=== PATIENT | female | born 1960 | race Caucasian/White ===

== ENCOUNTER 2023-04-23 14:27 | Emergency (ER) | payer OTHER, SELFPAY ==
--- NOTE | ~2023-04-23 | CT_ITS ---
EXAMINATION: CT gi bleed abd pel wo/w IVcon CLINICAL INFORMATION: bloody diarrhea, severe abd pain COMPARISON: None. TECHNIQUE: Following noncontrast images, multidetector volumetric imaging was performed from the superior aspect of the liver through the pubic symphysis following administration of 80 mL Omnipaque 300 intravenous contrast. Early and delayed phase imaging obtained. Sagittal and coronal reformatted images were obtained on the technologist workstation.. This CT examination was performed using dose optimization techniques as appropriate, variously including the following: *Automated exposure control *Adjustment of mA and/or kV according to patient size (this includes techniques or standardized protocols for targeted exams where dose is matched to indication/reason for exam; i.e. extremities or head) *Use of iterative reconstruction technique DLP: 985 mGy-cm FINDINGS: LUNG BASES: The visualized lung bases are unremarkable. LIVER, GALLBLADDER, AND BILIARY TREE: The liver is normal in size, shape, and attenuation. Low-attenuation subcentimeter probable cyst in the lateral segment 2 of the liver. No suspicious focal hepatic lesion or biliary ductal dilatation is present. The gallbladder is unremarkable with no evidence of radiopaque gallstones, gallbladder wall thickening, or obvious pericholecystic inflammatory changes. PANCREAS: Unremarkable. SPLEEN: Unremarkable. ADRENAL GLANDS: Unremarkable. KIDNEYS AND URETERS: The kidneys are normal in size, shape, and attenuation. Tiny cortical low-attenuation cysts in the right greater left kidneys. No hydronephrosis, hydroureter, or calculi seen. No perinephric stranding. BLADDER: Unremarkable. GASTROINTESTINAL TRACT: There is diffuse colonic wall thickening extending from the splenic flexure to the proximal sigmoid colon. This relatively long segment of colonic wall thickening and pericolonic inflammatory change is more suggestive of underlying infectious or inflammatory etiologies. I do not appreciate any active contrast extravasation on the early contrast phase or puddling of contrast on the delayed postcontrast images. No obstructive changes to the more proximal bowel ABDOMINAL WALL: No significant hernia is appreciated. LYMPHOVASCULAR STRUCTURES: Vascular calcification within the aorta iliac system. PELVIC VISCERA: Unremarkable. 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 This is a relatively long segment of colonic wall thickening and pericolonic inflammatory change. Infectious or inflammatory etiologies would be favored. I do not appreciate any evidence for active GI bleed
--- NOTE | 2023-04-23 14:31 | ED_ITS ---
[facility] - General Adult General Chief complaint: Abdominal Pain Stated complaint: Rectal Bleed Time Seen by Provider: 04/23/23 17:57 Source: patient and family Mode of arrival: ambulatory History of Present Illness HPI narrative: 62-year-old female who presents with history of hypertension and regular alcohol use but denies any increase an NSAID use but states she uses a daily aspirin. Patient states that early in the morning she awoke with significant abdominal discomfort and does not think it is related with any contaminated food and this was associated with significant nausea and she states that she was able to have a bowel movement and that the discomfort improved afterwards but she noted that there was diarrhea mixed with blood. She stated that the blood was stone a toilet paper on wiping, she had another episode, followed up with her PCP who did perform a rectal exam and informed the patient that the stool was dark but that if she had another episode of bleeding with defecation that she should seek further evaluation in the emergency room. She did have another episode and is now presenting for further workup. She states that the abdominal discomfort is constant in that there are no alleviating or exacerbating symptoms. She states that she is no longer passing flatus but has attempted to eat yogurt and has had coffee today as well. She denies any use blood thinners. Related Data Previous Rx's Medication Instructions Recorded omeprazole 40 mg capsule,delayed 40 mg PO DAILY #30 caps 04/23/23 release Allergies Allergy/AdvReac Type Severity Reaction Status Date / Time No Known Allergies Allergy Verified 04/23/23 14:35 Review of Systems Review of Systems: Pertinent positives and negatives as stated in [facility] Past Medical History Source: nursing notes reviewed Social History Social History Alcohol intake: current Alcohol intake frequency: a few times a week Smoked in Last 30 Days: No Use of substances other than those prescribed or required for medical reasons: No Advance Directives: No Advance Directives Information Provided: Yes Patient : No Physical Exam ED Vital Signs: Vital Signs - 24 hr 04/23/23 14:32 04/23/23 18:02 04/23/23 18:14 Temperature 98 F Pulse Rate 75 91 Respiratory Rate 19 18 Blood Pressure 216/97 H 195/107 H 179/86 H Pulse Oximetry 98 98 Oxygen Delivery Method Room Air 04/23/23 19:50 04/23/23 20:00 Temperature 98.5 F 98.0 F Pulse Rate 78 60 Respiratory Rate 16 16 Blood Pressure 175/89 H 115/63 Pulse Oximetry 97 98 Oxygen Delivery Method Room Air BMI result Body Mass Index 23.3 VITAL SIGNS: Reviewed. GENERAL: Well developed, well nourished, in no acute distress. HEAD: Normocephalic/atraumatic EYES: PERRLA, EOMI, no pale conjunctiva EARS: Ext canals without abnormality NOSE: Nares patent bilateral OROPHARYNX: no oral lesions noted, posterior pharynx clear NECK: Supple, no adenopathy LUNGS: Normal breath sounds. No adventitious sounds or accessory muscle use. SpO2<98> CARDIOVASCULAR: Regular rate and rhythm without noted murmurs ABDOMEN: Soft, mid/upper abdominal discomfort on palpation, non-distended with bowel sounds. BRYCE: Not inflamed external hemorrhoids, soft stool within the rectal vault with brick colored blood, good rectal tone MUSCULOSKELETAL: No tenderness, deformities, or effusions noted on gross inspection. EXTREMITIES: No cyanosis, clubbing or edema. SKIN: Inspection of the skin reveals no rashes or pallor NEUROLOGIC: Alert and oriented x 4. Strength and sensation to light touch were grossly intact x 4. Course Course Course Narrative: This is an RME: Additional HPI, ROS, PE not included below will be deferred to primary provider. Patient is a 62-year-old female with history of COPD, breast cancer in remission, alcohol use but recently cut back presenting to the emergency department with abdominal pain, 2 episodes of diarrhea with bright red blood. This morning noted a blood tinge with BM and blood on toilet paper after wiping. Saw PA at [place] today, did a rectal exam, he stated that he did not see blood but stool was dark, advised her to go to ED if another episode occurred. Reports went home and had another BM with blood noted. Continues to have diffuse abdominal pain. BP high but patient did not take BP meds today. Plan: labs Medications Administered Discontinued Medications Generic Name Dose Route Start Last Admin Trade Name Freq PRN Reason Stop Dose Admin Sodium Chloride 1,000 mls @ 999 mls/hr 04/23/23 18:15 04/23/23 19:50 Ns IV 04/23/23 19:15 Infused .Q1H1M AMANDA Infusion Iohexol 100 ml 04/23/23 19:12 04/23/23 19:12 Iohexol 350 Mg/Ml 100 Ml Infus..Btl IV 04/23/23 19:13 85 ml ONCE ONE Administration Pantoprazole Sodium 80 mg 04/23/23 18:15 04/23/23 18:31 Pantoprazole Sodium 40 Mg/10 Ml Vial IVPUSH 04/23/23 18:16 80 mg ONCE ONE Administration Medical Decision Making Medical Decision Making [facility] Narrative: 1815: 62-year-old female with history and clinical presentation suggestive of upper GI bleed and possibly related with chronic alcohol consumption, source and history does appear to be consistent with hemorrhoidal in nature and lower clinical suspicion for diverticular. There is the possibility of ischemic, otherwise patient is hemodynamically stable, hemoglobin is stable but will repeat, will start IV/administer IV fluids/Protonix and proceed with CT scan with IV contrast using GI bleed protocol. 2120: I reviewed all investigations, to include serial hemoglobin/hematocrit evaluations which remains stable, patient is not tachycardic, pain has resolved, blood pressure remains stable and on review CT scan there is evidence splenic flexure thickening that extends distal, all results and findings were discussed with patient at bedside and reassured patient that I do think she is a safe discharged home with strict return precautions that if she develops any significant amount of bleeding episodes that she should immediately return. Patient reports that she has a Gastroenterology appointment on 05/06 and would otherwise like to go home. Patient will be started on 40 mg omeprazole, daily and instructed to initiate a bland diet. Differential Diagnosis Please see the discussion above Lab Data Please see the discussion above 04/23/23 16:05 04/23/23 16:05 Labs: Lab Results 04/23/23 04/23/23 04/23/23 Range/Units 16:05 16:05 16:05 WBC 10.1 (4.8-10.8) X10*3/uL RBC 4.41 (4.20-5.50) X10*6/uL Hgb 13.3 (12.0-16.0) g/dl Hct 40.2 (37.0-47.0) % MCV 91.2 (80.0-98.0) fL MCH 30.2 (27.0-33.0) pg MCHC 33.1 (31.0-35.0) g/dl RDW 13.5 (11.0-16.0) % Plt Count 223 (160-400) X10*3/uL MPV 10.4 (9.4-12.3) fL Immature Gran % (Auto) 0.3 (0.0-0.4) % Neut % (Auto) 71.1 (45-73) % Lymph % (Auto) 19.8 L (20-40) % [place] % (Auto) 8.2 (2-11) % Eos % (Auto) 0.3 (0-4) % Baso % (Auto) 0.3 (0-2) % Lymph # (Auto) 2.0 (1.2-4.9) X10*3/uL [place] # (Auto) 0.8 (0.1-1.2) X10*3/uL Eos # (Auto) 0.0 (0.0-0.4) X10*3/uL Baso # (Auto) 0.0 (0.0-0.2) X10*3/uL Abs Immat Gran (auto) 0.03 (0.00-0.03) X10*3/uL Absolute Neuts (auto) 7.2 (2.0-8.3) x10*3/uL Absolute Nucleated RBC 0.000 (0.0-0.012) X10*3/uL Nucleated RBC % (auto) 0.0 (0.0-0.2) /100WBC PT 9.8 L (10.0-13.1) SEC INR 0.9 (0.9-1.1) Sodium 143 (135-145) mmol/L Potassium 4.4 (3.3-5.1) mmol/L Chloride 105 (96-108) mmol/L Carbon Dioxide 28 (22-29) mmol/L Anion Gap 14 (12-20) BUN 17 H (9-16) mg/dL Creatinine 0.64 (0.5-1.4) mg/dL Estim Creat Clear Calc 81.9 Estimated GFR > 60 Random Glucose 94 (60-115) mg/dL Calcium 10.2 (8.4-10.2) mg/dL Total Bilirubin 0.7 (0.0-1.0) mg/dL AST 18 (5-31) U/L ALT 16 (0-31) U/L Alkaline Phosphatase 92 (39-117) U/L Total Protein 7.4 (6.5-8.0) g/dL Albumin 4.5 (3.5-5.0) g/dL Lipase 22 (8-78) U/L Stool Occult Blood (NEGATIVE) Blood Type Antibody Screen 04/23/23 04/23/23 04/23/23 Range/Units 16:05 18:10 20:20 WBC (4.8-10.8) X10*3/uL RBC (4.20-5.50) X10*6/uL Hgb 13.1 (12.0-16.0) g/dl Hct 39.5 (37.0-47.0) % MCV (80.0-98.0) fL MCH (27.0-33.0) pg MCHC (31.0-35.0) g/dl RDW (11.0-16.0) % Plt Count (160-400) X10*3/uL MPV (9.4-12.3) fL Immature Gran % (Auto) (0.0-0.4) % Neut % (Auto) (45-73) % Lymph % (Auto) (20-40) % [place] % (Auto) (2-11) % Eos % (Auto) (0-4) % Baso % (Auto) (0-2) % Lymph # (Auto) (1.2-4.9) X10*3/uL [place] # (Auto) (0.1-1.2) X10*3/uL Eos # (Auto) (0.0-0.4) X10*3/uL Baso # (Auto) (0.0-0.2) X10*3/uL Abs Immat Gran (auto) (0.00-0.03) X10*3/uL Absolute Neuts (auto) (2.0-8.3) x10*3/uL Absolute Nucleated RBC (0.0-0.012) X10*3/uL Nucleated RBC % (auto) (0.0-0.2) /100WBC PT (10.0-13.1) SEC INR (0.9-1.1) Sodium (135-145) mmol/L Potassium (3.3-5.1) mmol/L Chloride (96-108) mmol/L Carbon Dioxide (22-29) mmol/L Anion Gap (12-20) BUN (9-16) mg/dL Creatinine (0.5-1.4) mg/dL Estim Creat Clear Calc Estimated GFR Random Glucose (60-115) mg/dL Calcium (8.4-10.2) mg/dL Total Bilirubin (0.0-1.0) mg/dL AST (5-31) U/L ALT (0-31) U/L Alkaline Phosphatase (39-117) U/L Total Protein (6.5-8.0) g/dL Albumin (3.5-5.0) g/dL Lipase (8-78) U/L Stool Occult Blood POSITIVE (NEGATIVE) Blood Type O Positive Antibody Screen NEGATIVE Radiology Impression Radiologist Impression: My interpretation is in agreement with radiology's impression Chronic Conditions Patient?s care impacted by: Hypertension Discharge Plan Discharge Clinical Impression: GI bleed, Abdominal pain, Colitis Patient Disposition: Home, Self-Care Instructions: Abdominal Pain (ED), Colitis (ED) Additional Instructions: 1. Resume all home medications as prescribed. 2. Recommend sticking with a bland diet, drink plenty of water, avoid all NSAIDs at this time (aspirin/Excedrin/ibuprofen/Motrin/Aleve). 3. Please keep the appointment that you have scheduled or or your gastroent erologist in April. Do not hesitate to return to this emergency room should you experience any worse karri bleeding, dizziness, palpitation. Prescriptions: New omeprazole 40 mg capsule,delayed release(DR/EC) 40 mg PO DAILY Qty: 30 0RF
[2023-04-23 14:32] VITALS: BP 216/97; PULSE 75; RESP 19; TEMP 36.6; O2SAT 98; BMI 23.3
--- NOTE | 2023-04-23 16:08 | MHC.EDTECH ---
PATIENT TYPE AND SCREEN AND BLOOD DRAWN AND SENT TO LAB .
[2023-04-23 16:14] LABS: MANUAL DIFF FLAG NO
[2023-04-23 16:15] LABS: Basophils Percent Auto 0.3 % (0-2); Eosinophils Percent Auto 0.3 % (0-4); Hematocrit 40.2 % (37.0-47.0); Hemoglobin 13.3 g/dl (12.0-16.0); Imm Gran Abs Auto 0.03 X10*3/uL (0.00-0.03); Imm Gran Pct Auto 0.3 % (0.0-0.4); Lymphocytes Percent Auto 19.8 % (20-40); Mean Corpuscular HGB Conc 33.1 g/dl (31.0-35.0); Mean Corpuscular Hemoglobin 30.2 pg (27.0-33.0); Mean Corpuscular Volume 91.2 fL (80.0-98.0); Mean Platelet Volume 10.4 fL (9.4-12.3); Monocytes Absolute Auto 0.8 X10*3/uL (0.1-1.2); Monocytes Percent Auto 8.2 % (2-11); Neutrophils Absolute Auto 7.2 x10*3/uL (2.0-8.3); Neutrophils Percent Auto 71.1 % (45-73); Platelet Count 223 X10*3/uL (160-400); Red Blood Count 4.41 X10*6/uL (4.20-5.50); Red Cell Distribution Width 13.5 % (11.0-16.0); White Blood Count 10.1 X10*3/uL (4.8-10.8)
[2023-04-23 16:33] LABS: INTERNATIONAL NORM RATIO 0.9 (0.9-1.1); Prothrombin Time 9.8 SEC (10.0-13.1)
[2023-04-23 16:43] LABS: Alanine Aminotransferase 16 U/L (0-31); Albumin Level 4.5 g/dL (3.5-5.0); Alkaline Phosphatase 92 U/L (39-117); Anion Gap 14 (12-20); Aspartate Amino Transferase 18 U/L (5-31); Bilirubin Total 0.7 mg/dL (0.0-1.0); Blood Urea Nitrogen 17 mg/dL (9-16); Calcium 10.2 mg/dL (8.4-10.2); Carbon Dioxide 28 mmol/L (22-29); Chloride 105 mmol/L (96-108); Creatinine Clr Calc Pharmacy 81.9; Estimated Glomerular Filt Rate > 60; Glucose Random 94 mg/dL (60-115); Potassium 4.4 mmol/L (3.3-5.1); Sodium 143 mmol/L (135-145); Total Protein 7.4 g/dL (6.5-8.0)
--- NOTE | 2023-04-23 17:04 | MHC.EDTECH ---
PATIENT 2ND TYPE AND SCREEN DRAWN AND SENT TO LAB .
[2023-04-23 18:02] VITALS: BP 195/107; PULSE 91; RESP 18; O2SAT 98
[2023-04-23 18:08] LABS: Lipase 22 U/L (8-78)
[2023-04-23 18:14] VITALS: BP 179/86
[2023-04-23] MEDS: 0.9 % Sodium Chloride 1,000 ML 999 ML IV (18:23)
[2023-04-23] MEDS: Pantoprazole Sodium 40 MG/10 ML VIAL 80 MG IVPUSH (18:31)
--- NOTE | 2023-04-23 18:33 | PC.NURSE ---
pt is alert and oriented, skin pwd, respirations even and unlabored, abd soft but slightly tender in the epigastric area, pt reports yesterday evening after eating having sever abd pain and had two bowel movements of diarrhea-one very large and noticed bright red blood in the stool, pt also had another diarrhea episode today with more blood and blood clots per pt, no nausea. pt also reports being a daily drinker few drinks per day, last drink was last night vs stable and ns on the monitor
[2023-04-23 18:57] LABS: OBS Int Ctl Valid YES; OBS1 POSITIVE (NEGATIVE)
[2023-04-23] MEDS: iohexoL 350 MG/ML 100 ML INFUS..BTL IV (19:12)
[2023-04-23 19:50] VITALS: BP 175/89; PULSE 78; RESP 16; TEMP 36.9; O2SAT 97
--- NOTE | 2023-04-23 19:51 | PC.NURSE ---
Assumed care of pt. Pt lying on stretcher, no acute complaints at this time. Stood and ambulated to bathroom with steady gait. VSS, except noted HTN to 170's, aware.
[2023-04-23 20:00] VITALS: BP 115/63; PULSE 60; RESP 16; TEMP 36.7; O2SAT 98
[2023-04-23 20:34] LABS: Hematocrit 39.5 % (37.0-47.0); Hemoglobin 13.1 g/dl (12.0-16.0)
--- NOTE | 2023-04-23 21:05 | PC.NURSE ---
Pt sts pain has returned, dull ache per description, similar in nature to arrival complaint.
== END 2023-04-23 21:40 | disposition home or self-care (01) ==
PROVIDERS: Registered Nurse Emergency; Emergency Provider Student in an Organized Health Care Education/Training Program; PCP Pediatrics
DX: K92.2 Gastrointestinal hemorrhage, unspecified (principal); K52.9 Noninfective gastroenteritis and colitis, unspecified; R10.2 Pelvic and perineal pain; Z79.899 Other long term (current) drug therapy
CPT/HCPCS: 36415; 74178; 80053; 82272; 83690; 85014; 85018; 85025; 85610; 86850; 86900; 86901; 96361; 96374; 99284; 99285; Q9967